=== PATIENT | female | born 1980 | race Caucasian/White ===

== ENCOUNTER 2017-05-21 12:09 | Emergency (ER) | payer OTHER ==
[~2017-05-21] VITALS: Ht 149.9 cm; Wt 52.7 kg
[~2017-05-21 12:09] MED LIST: [UNRECOGNIZED DRUG - CODE] TP
[2017-05-21 12:16] VITALS: BP 113/71
--- NOTE | 2017-05-21 12:23 | NUR ---
Patient to OF.
--- NOTE | 2017-05-21 12:25 | NUR ---
PATIENT PRESENTS TO ED WITH SUPERFICIAL HORIZONTAL LAC OVER LEFT SIDE OF FOREHEAD HAIRLINE AREA . PT STATES . DENIES N/V/D; DENIES KO; SKIN IS PINK/WARM/DRY; AAOX4 WITH EVEN AND STEADY GAIT; LUNGS CLEAR BL; HR EVEN AND REGULAR; PT DENIES ANY FEVER, CP, SOB, OR COUGH AT THIS TIME; PATIENT STATES PAIN OF 4/10 AT THIS TIME; VSS; PATIENT POSITIONED FOR COMFORT; HOB ELEVATED; BEDRAILS UP X2; BED DOWN. ER MD MADE AWARE OF PT STATUS.
[2017-05-21 13:44] VITALS: BP 113/71
== END 2017-05-21 13:44 | disposition home or self-care (01) ==
LOC: MED 12:09
DX: S01.81XA Laceration without foreign body of other part of head, initial encounter (principal); Z79.899 Other long term (current) drug therapy; W22.8XXA Striking against or struck by other objects, initial encounter; Y93.89 Activity, other specified; Y92.89 Other specified places as the place of occurrence of the external cause; Y99.8 Other external cause status
CPT/HCPCS: 90471; 90715; 99283

== ENCOUNTER 2020-07-30 09:26 | Day surgery (SDC) | payer OTHER, SELFPAY ==
[2020-07-22 12:50] LABS: BASOPHILS % (AUTO) 0.6 % (0.0-2.0); EOSINOPHILS # (AUTO) 0.2 K/uL (0-0.4); EOSINOPHILS % (AUTO) 3.1 % (0.0-4.0); HEMATOCRIT 37.7 % (36-48); HEMOGLOBIN 12.7 g/dL (12.0-16.0); LYMPHOCYTES # (AUTO) 2.3 K/uL (2.5-16.5); LYMPHOCYTES % (AUTO) 31.7 % (20.5-51.1); MEAN CORPUSCULAR HEMOGLOBIN 29 pg (27-31); MEAN CORPUSCULAR HGB CONC 34 g/dL (33-37); MEAN CORPUSCULAR VOLUME 84.8 fL (80-94); MONOCYTES # (AUTO) 0.5 K/uL (0.8-1.0); MONOCYTES % (AUTO) 6.3 % (1.7-9.3); NEUTROPHILS # (AUTO) 4.3 K/uL (1.8-7.7); NEUTROPHILS % (AUTO) 58.3 % (42.2-75.2); PLATELET COUNT (AUTO) 344 K/uL (140-450); RED BLOOD CELL COUNT(AUTO) 4.45 MIL/uL (4.20-5.40); RED CELL DISTRIBUTION WIDTH 12.8 % (11.6-13.7); WHITE BLOOD COUNT (AUTO) 7.3 K/uL (4.8-10.8)
[2020-07-22 13:16] LABS: ALBUMIN 3.6 g/dL (3.4-5.0); ANION GAP 11.6 (8-16); CARBON DIOXIDE 26.1 mmol/L (21-32); CREATININE 0.7 mg/dL (0.6-1.3); POTASSIUM 3.7 mmol/L (3.5-5.1); TOTAL BILIRUBIN 0.6 mg/dL (0.0-1.0)
[~2020-07-30] VITALS: Ht 147.3 cm; Wt 62.6 kg
[2020-07-30] MEDS ORDERED: BUPIVACAINE MPF 0.25% 10 ML VIAL INJ ONE ×2 (11:37→11:38)
[2020-07-30] MEDS ORDERED: SEVOFLURANE 250 ML BTL INH ONE (11:39)
[2020-07-30] MEDS ORDERED: NEOSTIGMINE 1:1000 10 MG/10 ML VIAL ONE (11:39)
[2020-07-30] MEDS ORDERED: ROCURONIUM 50 MG/5 ML VIAL IV ONE (11:39)
[2020-07-30] MEDS ORDERED: fentaNYL citrate 0.05 MG/ML VIAL ONE (11:39)
[2020-07-30] MEDS ORDERED: DEXAMETHASONE 4 MG/ML VIAL ONE (11:39)
[2020-07-30] MEDS ORDERED: ONDANSETRON 4 MG/2 ML VIAL ONE (11:39)
[2020-07-30] MEDS ORDERED: ceFAZolin 1,000 MG VIAL ONE (11:39)
[2020-07-30] MEDS ORDERED: GLYCOPYRROLATE 0.2 MG/ML VIAL ONE (11:39)
[2020-07-30] MEDS ORDERED: PROPOFOL 200 MG/20 ML VIAL IV ONE (11:39)
[2020-07-30] MEDS ORDERED: ONDANSETRON 4 MG/2 ML VIAL IVP PRN (12:55)
[2020-07-30] MEDS ORDERED: HYDROmorphone 1 MG/ML AMP IVP PRN (12:55)
[2020-07-30] MEDS ORDERED: HYDROcodone/APAP 5/325 MG 1 TAB TAB PO PRN (13:55)
[2020-07-30] MEDS ORDERED: KETOROLAC 30 MG/ML VIAL IVP SCH (14:00)
[2020-07-30] MEDS ORDERED: KETOROLAC 30 MG/ML VIAL IVP ONE (14:01)
[2020-07-30] MEDS ORDERED: HYDROcodone/APAP 5/325 MG 1 TAB TAB PO ONE (14:01)
== END 2020-07-30 15:40 | disposition home or self-care (01) ==
LOC: MFCC 09:26 → MDS 09:26
PROVIDERS: ATTEND Obstetrics & Gynecology
DX: Z30.2 Encounter for sterilization (principal); Z20.828 Contact with and (suspected) exposure to other viral communicable diseases
CPT/HCPCS: 36415; 58670; 80053; 81025; 84702; 85025; J0690; J1100; J1885; J2405; J2704; J2710; J3010; J3490; U0003